=== PATIENT | female | born 1955 ===

== ENCOUNTER 2020-11-16 10:42 | Day surgery (SDC) | payer BC ==
[~2020-11-16 10:42] MED LIST: Lactated Ringers 1,000 ML IV SCH
--- NOTE | 2020-11-16 11:45 | PCM.PREANE ---
Preanesthetic Assessment - Anesthesia/Transfusion/Family Hx Anesthesia History: Prior Anesthesia Without Reaction Other Type of Anesthesia Reaction Comment: Sick x 1 @ [place] when they tried new anesthesia Family History of Anesthesia Reaction: No Transfusion History: No Prior Transfusion(s) - Review of Systems General: No Symptoms Pulmonary: No Symptoms Cardiovascular: No Symptoms Gastrointestinal: No Symptoms Neurological: No Symptoms Other: Reports: None - Physical Assessment NPO Status Date: 11/16/20 NPO Status Time: 00:01 Vital Signs: Last Vital Signs Temp 96.3 F L 11/16/20 10:50 Pulse 96 11/16/20 10:50 Resp 15 11/16/20 10:50 BP 146/85 H 11/16/20 10:50 Pulse Ox 95 11/16/20 10:50 Height: 5 ft Weight: 140 lb ASA Class: 2 Mental Status: Alert & Oriented x3 Airway Class: Mallampati = 2 Dentition: Reports: Normal Dentition ROM/Head Extension: Full Lungs: Clear to Auscultation, Normal Respiratory Effort Cardiovascular: Regular Rate, Regular Rhythm - Allergies Allergies/Adverse Reactions: Allergies Allergy/AdvReac Type Severity Reaction Status Date / Time raspberry [Raspberry] Allergy Rash Verified 11/09/20 11:36 strawberry [[place]] Allergy Rash Verified 11/09/20 11:36 - Anesthesia Plan Pre-Op Medication Ordered: None - Acknowledgements Anesthesia Type Planned: General Anesthesia Pt an Appropriate Candidate for the Planned Anesthesia: Yes Alternatives and Risks of Anesthesia Discussed w Pt/Guardian: Yes Pt/Guardian Understands and Agrees with Anesthesia Plan: Yes Additional Comments: npo no cv problems tob none etoh daily beer - last 2 days ago tiffany hayfever par no questions PreAnesthesia Questionnaire HEENT History: Reports: Cataract, Other (See Below) Other HEENT History: wears glasses, has upper permanent dental retainer Cardiovascular History: Reports: High Cholesterol Gastrointestinal History: Reports: Colon Polyp Genitourinary History: Reports: None [employer]AD TE[employer]CHITECT History: Reports: Musculoskeletal History: Reports: Arthritis Other Musculoskeletal History: arthritis in hands Neurological History: Reports: Other (See Below) Other Neuro History: hx of restless legg syndrome and benign tremors Endocrine/Metabolic History: Reports: Hypothyroidism, Other (See Below) Other Endocrine/Metabolic History: hx of Graves disease Oncologic (Cancer) History: Reports: Squamous Cell Carcinoma Other Oncologic History: skin cancer removed from leg - Past Surgical History Head Surgeries/Procedures: Reports: None HEENT Surgical History: Reports: Cataract Surgery, Eye Surgery, Other (See Below) Other HEENT Surgeries/Procedures: multiple eye surgeries, hx of "face lift" GI Surgical History: Reports: Appendectomy, Cholecystectomy, Colonoscopy Female Surgical History: Reports: Section, Tubal Ligation Endocrine Surgical History: Reports: Thyroidectomy Dermatological Surgical History: Reports: Skin Biopsy - SUBSTANCE USE Tobacco Use Status *Q: Former Tobacco User Tobacco Use Within Last Twelve Months: No Recreational Drug Use History: No - HOME MEDS Home Medications: Home Meds Gabapentin [Neurontin] 300 mg PO BEDTIME 02/12/14 [History] Cetirizine [ZyrTEC] 10 mg PO DAILY PRN 11/09/20 [History] Diclofenac Sodium [Voltaren Arthritis Pain] 1 dose TOP TID PRN 11/09/20 [History] Levothyroxine Sodium [Levothyroxine] 100 mcg PO QAM 11/09/20 [History] Omeprazole 20 mg PO DAILY PRN 11/09/20 [History] Simvastatin 40 mg PO BEDTIME 11/09/20 [History] - CURRENT (IN HOUSE) MEDS Current Meds: Current Medications Lactated Ringer's (Ringers, Lactated) 1,000 mls @ 125 mls/hr IV ASDIRECTED [facility] Last Admin: 11/16/20 11:00 Dose: 125 mls/hr Documented by:
[2020-11-16] MEDS ORDERED: fentaNYL 100 MCG/2 ML SDV ONE (13:23)
[2020-11-16] MEDS ORDERED: Midazolam 1 MG/ML 2 ML SDV ONE (13:23)
[2020-11-16] MEDS ORDERED: Propofol 200 MG/20 ML SDV ONE (13:23)
--- NOTE | 2020-11-16 14:07 | PCM.OPNOTE ---
- General Post-Op/Procedure Note Date of Surgery/Procedure: 11/16/20 Operative Procedure(s): colonoscopy Findings: diverticulosis Dictation number # [id number] Pre Op Diagnosis: History of colon polyps Post-Op Diagnosis: Diverticulosis Primary Surgeon: Tereso Keith Condition: Good
[2020-11-16 14:23] VITALS: PULSE 64
[2020-11-16 14:35] VITALS: BP 119/76
--- NOTE | 2020-11-16 14:36 | PCM.POSTAN ---
POST ANESTHESIA ASSESSMENT - MENTAL STATUS Mental Status: Alert - VITAL SIGNS Vital Signs: Last Vital Signs Temp 35.8 C L 11/16/20 14:28 Pulse 64 11/16/20 14:22 Resp 14 11/16/20 14:28 BP 119/76 11/16/20 14:28 Pulse Ox 95 11/16/20 14:28 - RESPIRATORY Respiratory Status: Respiratory Rate WNL - CARDIOVASCULAR CV Status: Pulse Rate WNL - GASTROINTESTINAL GI Status: No Symptoms - POST OP HYDRATION Hydration Status: Adequate & Stable
--- NOTE | 2020-11-16 14:45 | PCM48HPAN ---
Post Anesthesia Note - EVALUATION WITHIN 48HRS OF ANESTHETIC Vital Signs in Normal Range: Yes Patient Participated in Evaluation: Yes Respiratory Function Stable: Yes Airway Patent: Yes Cardiovascular Function Stable: Yes Hydration Status Stable: Yes Pain Control Satisfactory: Yes Nausea and Vomiting Control Satisfactory: Yes Mental Status Recovered: Yes Vital Signs: Last Vital Signs Temp 35.8 C L 11/16/20 14:28 Pulse 64 11/16/20 14:22 Resp 14 11/16/20 14:28 BP 119/76 11/16/20 14:28 Pulse Ox 95 11/16/20 14:28
--- NOTE | 2020-11-16 22:12 | OR ---
SURGEON: ISABEL OLMSTEAD MD DATE OF PROCEDURE: 11/16/2020 PREOPERATIVE DIAGNOSES: 1. History of colon polyps. 2. Family history of colon cancer. POSTOPERATIVE DIAGNOSIS: Diverticulosis. PROCEDURE PERFORMED: Colonoscopy. PRIMARY SURGEON: Isabel Olmstead MD ANESTHESIA: General with anesthesiologist. EXTENT OF THE COLONOSCOPY: To the cecum. BOWEL PREP: Very good. LIMITATIONS: None. REASON FOR PROCEDURE: The patient is a pleasant 64-year-old female. Her last colonoscopy was in 2013. She had some polyps removed. She says she occasionally has some blood in her stool, but says it is because of her hemorrhoids. Her mother recently of colon cancer. PROCEDURE IN DETAIL: Physical exam was performed. The major risks and benefits associated with the procedure were explained to the patient in detail. The patient verbalized understanding and agreement of the same. The patient was then connected to appropriate monitoring device and IV started. EKG, pulse, pulse oximetry, blood pressure, and capnography were monitored throughout the procedure. Continuous oxygen and sedation were provided by the anesthesiologist. The patient was placed in left lateral decubitus position and sedation began. After adequate sedation was achieved, a digital rectal exam was performed. No rectal masses or polyps were felt. Now, a well-lubricated Olympus colonoscope was entered in the rectum and advanced under direct visualization to the level of the cecum. Cecum was identified by both visual and anatomic landmarks. Photographs were taken of the cecal cap and the ileocecal valve. Scope was then slowly withdrawn in somewhat circular fashion looking at the color, texture, anatomy, and integrity of the mucosa from the cecum to the anal canal. The patient had some light liquid stool which was suctioned and irrigated out for good look at the mucosa. The patient did have some scant diverticulosis in her sigmoid colon. Scope was retroflexed in the rectum. Scope was completely removed and the procedure was terminated. ENDOSCOPIC DIAGNOSIS: Diverticulosis. RECOMMENDATIONS: Followup colonoscopy in five years because of her family history of colon cancer or sooner if she develops signs and symptoms such as change in bowel or blood in her stool. BRITTANY / CARLOS /[id number]
== END 2020-11-16 14:55 | disposition home or self-care (01) ==
LOC: MW.SDS 10:42
PROVIDERS: ATTEND Surgery
DX: K57.30 Diverticulosis of large intestine without perforation or abscess without bleeding (principal); E78.5 Hyperlipidemia, unspecified; E03.9 Hypothyroidism, unspecified; E78.00 Pure hypercholesterolemia, unspecified; R73.03 Prediabetes; Z91.018 Allergy to other foods; Z79.890 Hormone replacement therapy; Z79.899 Other long term (current) drug therapy; Z86.010 Personal history of colon polyps; Z87.891 Personal history of nicotine dependence; Z85.828 Personal history of other malignant neoplasm of skin; Z80.0 Family history of malignant neoplasm of digestive organs; Z98.890 Other specified postprocedural states
CPT/HCPCS: 45378; J2250; J2704; J3010; J7120; 00811